=== PATIENT | male | born 1940 | race Caucasian/White ===

== ENCOUNTER → 2018-05-23 | Outpatient (CLI) | payer OTHER, BC | LOC: BMCIMAGING 14:03 | PROVIDERS: ATTEND Physician Assistant | DX: M25.512 Pain in left shoulder (principal); M50.30 Other cervical disc degeneration, unspecified cervical region; M51.34 Other intervertebral disc degeneration, thoracic region ==

== ENCOUNTER → 2018-07-06 | Outpatient (CLI) | payer OTHER, BC | LOC: BMCIMAGING 15:04 | PROVIDERS: ATTEND Internal Medicine Geriatric Medicine | DX: Z13.820 Encounter for screening for osteoporosis (principal); E07.9 Disorder of thyroid, unspecified; M85.80 Other specified disorders of bone density and structure, unspecified site ==